=== PATIENT | female | born 1980 | race Caucasian/White ===

== ENCOUNTER 2018-03-29 05:49 | Day surgery (SDC) | payer OTHER ==
[~2018-03-29] VITALS: Ht 154.9 cm; Wt 69.9 kg
[2018-03-29] MEDS ORDERED: PROPOFOL 200 MG/20 ML VIAL IV ONE (07:22)
[2018-03-29] MEDS ORDERED: LIDOCAINE 2% 100 MG/5 ML SYR IVP ONE (07:22)
[2018-03-29] MEDS ORDERED: SEVOFLURANE 250 ML BTL INH ONE (07:22)
[2018-03-29] MEDS ORDERED: ONDANSETRON 4 MG/2 ML VIAL IVP PRN ×2 (07:35→07:55)
[2018-03-29] MEDS ORDERED: MIDAZOLAM 2 MG/2 ML VIAL ONE (07:35)
[2018-03-29] MEDS ORDERED: IBUPROFEN 800 MG TAB PO PRN (07:35)
[2018-03-29] MEDS ORDERED: MORPHINE SULFATE 4 MG/ML SYR IM/IVP PRN (07:35)
[2018-03-29] MEDS ORDERED: ACETAMINOPHEN/CODEINE 300/30MG 1 TAB PO PRN (07:35)
[2018-03-29] MEDS ORDERED: HYDROmorphone 1 MG/ML AMP IVP PRN (07:55)
[2018-03-29] MEDS ORDERED: HYDROmorphone PFS 2 MG/ML SYR ONE (08:10)
== END 2018-03-29 09:25 | disposition home or self-care (01) ==
LOC: MDS 05:49 → MMU 05:51 → MDS 09:25
PROVIDERS: ATTEND Obstetrics & Gynecology
DX: N72 Inflammatory disease of cervix uteri (principal); E66.3 Overweight; Z68.29 Body mass index [BMI] 29.0-29.9, adult; J45.909 Unspecified asthma, uncomplicated; I12.9 Hypertensive chronic kidney disease with stage 1 through stage 4 chronic kidney disease, or unspecified chronic kidney disease; N18.9 Chronic kidney disease, unspecified; E11.9 Type 2 diabetes mellitus without complications; F03.90 Unspecified dementia, unspecified severity, without behavioral disturbance, psychotic disturbance, mood disturbance, and anxiety; G40.909 Epilepsy, unspecified, not intractable, without status epilepticus; K21.9 Gastro-esophageal reflux disease without esophagitis; Z98.51 Tubal ligation status
CPT/HCPCS: 57522; 88305; 88307; J1170; J2001; J2250; J2704; J7030; J7120